=== PATIENT | female | born 1940 | race Two or more races ===

== ENCOUNTER 2021-01-13 19:00 | Inpatient (IN) | payer OTHER ==
[~2021-01-13] VITALS: Ht 162.6 cm; Wt 78.5 kg
[2021-01-13] MEDS ORDERED: GLIMEPIRIDE2 M1 PO (19:14)
[2021-01-13] MEDS ORDERED: SEMGLEE100 UNIT/1 SUBCUTANEO (19:15)
[2021-01-13] MEDS ORDERED: LOSARTAN POTASS50 MG PO (19:15)
[2021-01-13] MEDS ORDERED: LEVO-T25 MCG PO (19:15)
== END 2021-01-19 10:29 | disposition home or self-care (01) | DRG 392 ==
LOC: ER 19:00 → SEC-K 01-14 03:08 → SURH 01-14 10:54
PROVIDERS: ADMIT Surgery; ATTEND Surgery
PROC: 3E0F7GC Introduction of Other Therapeutic Substance into Respiratory Tract, Via Natural or Artificial Opening (ICD-10-PCS; principal; 2021-01-14)
PROC: BW2110Z Computerized Tomography (CT Scan) of Abdomen and Pelvis using Low Osmolar Contrast, Unenhanced and Enhanced (ICD-10-PCS; 2021-01-14)
PROC: B020ZZZ Computerized Tomography (CT Scan) of Brain (ICD-10-PCS; 2021-01-14)
PROC: BW2110Z Computerized Tomography (CT Scan) of Abdomen and Pelvis using Low Osmolar Contrast, Unenhanced and Enhanced (ICD-10-PCS; 2021-01-17)
DX: K52.89 Other specified noninfective gastroenteritis and colitis (principal); I10 Essential (primary) hypertension; E03.8 Other specified hypothyroidism; J45.998 Other asthma; Z20.822 Contact with and (suspected) exposure to COVID-19; K44.9 Diaphragmatic hernia without obstruction or gangrene; S09.8XXA Other specified injuries of head, initial encounter; W19.XXXA Unspecified fall, initial encounter; Y93.89 Activity, other specified; Y92.89 Other specified places as the place of occurrence of the external cause; Y99.8 Other external cause status